=== PATIENT | male | born 1945 | race African-American/Black ===

== ENCOUNTER 2017-04-19 12:52 | Outpatient (CLI) | payer MEDICARE ==
--- NOTE | 2017-04-19 14:17 | CT ---
CT BRAIN PERFORMED WITHOUT CONTRAST ENHANCEMENT: HISTORY: Chronic subdural followup. COMPARISON: None. FINDINGS: Postoperative changes are noted. Surgical aroldo and a frontal bur hole are noted. There is some f airly minimal low attenuation density in the subdural space in the right frontal lobe, which may repr esent some minimal residual chronic subdural. No significant mass effect is seen. Marked chronic wh ite matter changes are noted. Diffuse atrophy is present. IMPRESSION: Postoperative changes of the right frontal region. Very minimal low attenuation extraaxial fluid pre sent in this region. POS: NAUN
== END 2017-04-19 12:53 | disposition home or self-care (01) ==
LOC: TBSIIMAG 12:52
PROVIDERS: ATTEND Surgery
DX: I62.03 Nontraumatic chronic subdural hemorrhage (principal); Z98.890 Other specified postprocedural states
CPT/HCPCS: 70450